=== PATIENT | female | born 1940 | race African-American/Black ===

== ENCOUNTER 2019-10-11 06:23 | Day surgery (SDC) | payer MEDICARE, OTHER ==
[~2019-10-11] VITALS: Ht 160 cm; Wt 49.5 kg
[2019-10-11] MEDS ORDERED: ALBUTEROL0.83 MG/ML IH (06:46)
[2019-10-11] MEDS ORDERED: PROAIR HFA0.09 MG/AC IH (06:47)
[2019-10-11] MEDS ORDERED: PREDNISONE 5MG5 MG PO (06:47)
[2019-10-11] MEDS ORDERED: PHENERGAN W/CO120 M1 PO (06:48)
[2019-10-11] MEDS ORDERED: TESSALON P100 MG/CAP PO (06:49)
[2019-10-11 07:02] VITALS: BP 154/60; PULSE 69; TEMP 97.7
[2019-10-11 09:02] VITALS: BP 130/78; PULSE 105; TEMP 98.9
--- NOTE | 2019-10-11 09:02 | NUR ---
The patient arrived back to [facility] from the endoscopy suite. The patient is lying down on her right side and appears to be resting comfortably at this time. The patient's post procedure vital signs were started at this time. The patient's is at her bedside at this time. Call light is within reach. Will continue to monitor the patient.
[2019-10-11 09:17] VITALS: BP 173/83; PULSE 113
--- NOTE | 2019-10-11 09:17 | NUR ---
The patient was given the dose of phenergan with codeine as ordered. The patient appears more alert and her cough has increased again at this time. The patient denies wanting anything to eat or drink at this time. The patient's remains at her bedside. Will continue to monitor the patient.
[2019-10-11 09:32] VITALS: BP 152/75; PULSE 112
--- NOTE | 2019-10-11 09:35 | NUR ---
The patient is sitting up on the side her bed and appears to be resting comfortably at this time. The patient voices a desire to be discharged home.
--- NOTE | 2019-10-11 09:45 | NUR ---
Discharge instrucitons were reviewed with the patient and her at this time. They both verbalized understanding and have no questions for the nurse at this time. The patient's IV to her left forearm was removed and a pressure dressing was applied. The nurse instructed the patient to get dressed and notify the staff when she is ready to be escorted out.
--- NOTE | 2019-10-11 10:00 | NUR ---
The patient was escorted out via wheelchair to a private vehicle by HEMA Matias. The patient's belongings and discharge paperwork were sent with her. The patient's is present to drive her home.
== END 2019-10-11 10:00 | disposition home or self-care (01) ==
LOC: SDCO 06:23
DX: C34.90 Malignant neoplasm of unspecified part of unspecified bronchus or lung (principal); R04.2 Hemoptysis; C79.31 Secondary malignant neoplasm of brain; Z90.710 Acquired absence of both cervix and uterus; F17.210 Nicotine dependence, cigarettes, uncomplicated
CPT/HCPCS: J2270; J2704; J7030

== ENCOUNTER 2019-10-14 12:31 | Emergency (ER) | payer MEDICARE, OTHER ==
[~2019-10-14] VITALS: Ht 160 cm; Wt 47.7 kg
[~2019-10-14 12:31] MED LIST: ALBUTEROL0.83 MG/ML IH; PHENERGAN W/CO120 M1 PO; PREDNISONE 5MG5 MG PO; PROAIR HFA0.09 MG/AC IH; TESSALON P100 MG/CAP PO
[2019-10-14 12:39] VITALS: TEMP 98.4
[2019-10-14 13:48] LABS: BASO % 0.3 % (0.0-2.0); EOS % 0.3 % (0-4.0); GRAN # 9.2 (1.4-6.5); GRAN % 79.6 % (42.2-75.2); LYMPH # 1.5 (1.2-3.4); LYMPH % 12.6 % (20.0-51.0); MEAN CELL VOLUME 82 fl (80.0-100.0); MEAN CORPUSCULAR HGB CONC 31 g/dl (33.0-37.0); MEAN PLATELET VOLUME 9.2 fl (7.4-10.4); MONO # 0.8 (0.1-0.6); MONO % 6.7 % (1.7-9.3); PLATELET COUNT 198 K/mm3 (130-400); RED BLOOD COUNT 3.68 M/mm3 (4.10-5.30); REDCELL DISTRIBUTION WIDTH-CV 19.3 % (11.5-14.5)
[2019-10-14 13:50] LABS: HEMATOCRIT 30.2 % (37.0-47.0); HEMOGLOBIN 9.4 g/dl (12.5-16.0); MEAN CORPUSCULAR HEMOGLOBIN 26 pg (27.0-31.0)
[2019-10-14 14:05] LABS: ALBUMIN 3.8 gm/dL (3.5-5.0); BILIRUBIN,TOTAL 0.8 mg/dL (0.0-1.0); CALCIUM 9.1 mg/dL (8.4-10.2); CREATININE, serum 0.6 (0.52-1.25); POTASSIUM 3.5 mmol/L (3.4-5.0); TOTAL PROTEIN 6.4 gm/dL (6.4-8.2)
[2019-10-14 19:30] VITALS: BP 173/108; PULSE 126
== END 2019-10-14 19:45 | disposition short-term general hospital (02) ==
LOC: COL.ER 12:31
PROVIDERS: Physician Assistant
DX: C34.90 Malignant neoplasm of unspecified part of unspecified bronchus or lung (principal); I31.3 Pericardial effusion (noninflammatory); Z90.710 Acquired absence of both cervix and uterus; Z90.89 Acquired absence of other organs; Z87.891 Personal history of nicotine dependence
CPT/HCPCS: J1100; J7030; Q9967

== ENCOUNTER → 2019-11-06 | Outpatient (CLI) | payer MEDICARE, OTHER ==
[2019-11-06 14:37] LABS: BASO % 0.4 % (0.0-2.0); EOS # 0.1 (0.0-0.7); EOS % 1.9 % (0-4.0); GRAN # 6.5 (1.4-6.5); GRAN % 86.6 % (42.2-75.2); LYMPH # 0.6 (1.2-3.4); LYMPH % 7.3 % (20.0-51.0); MEAN CELL VOLUME 81 fl (80.0-100.0); MEAN CORPUSCULAR HEMOGLOBIN 26 pg (27.0-31.0); MEAN CORPUSCULAR HGB CONC 32 g/dl (33.0-37.0); MEAN PLATELET VOLUME 9.1 fl (7.4-10.4); MONO # 0.3 (0.1-0.6); MONO % 3.3 % (1.7-9.3); PLATELET COUNT 324 K/mm3 (130-400); RED BLOOD COUNT 3.86 M/mm3 (4.10-5.30); REDCELL DISTRIBUTION WIDTH-CV 18.1 % (11.5-14.5)
[2019-11-06 14:40] LABS: HEMATOCRIT 31.3 % (37.0-47.0)
[2019-11-06 14:45] LABS: INR 1.1 (0.8-3.0); PROTHROMBIN TIME 13.1 SECONDS (9.7-12.8)
== END ==
LOC: COL.LAB 14:01
DX: Z01.812 Encounter for preprocedural laboratory examination (principal); C34.90 Malignant neoplasm of unspecified part of unspecified bronchus or lung; D49.9 Neoplasm of unspecified behavior of unspecified site

== ENCOUNTER → 2019-11-21 | Outpatient (CLI) | payer MEDICARE, OTHER | LOC: COL.VAS 08:35 | DX: J44.9 Chronic obstructive pulmonary disease, unspecified (principal); I51.7 Cardiomegaly; I36.1 Nonrheumatic tricuspid (valve) insufficiency; J90 Pleural effusion, not elsewhere classified; Z85.118 Personal history of other malignant neoplasm of bronchus and lung ==

== ENCOUNTER 2019-12-15 08:53 | Emergency (ER) | payer MEDICARE, OTHER ==
[~2019-12-15] VITALS: Ht 154.9 cm; Wt 42.0 kg
[2019-12-15 09:03] VITALS: TEMP 98.5
[2019-12-15 10:33] LABS: BASO % 0.4 % (0.0-2.0); EOS % 0.6 % (0-4.0); GRAN # 4.2 (1.4-6.5); LYMPH # 0.2 (1.2-3.4); LYMPH % 3.2 % (20.0-51.0); MEAN CELL VOLUME 84 fl (80.0-100.0); MEAN CORPUSCULAR HGB CONC 31 g/dl (33.0-37.0); MEAN PLATELET VOLUME 9.4 fl (7.4-10.4); MONO # 0.6 (0.1-0.6); PLATELET COUNT 201 K/mm3 (130-400); RED BLOOD COUNT 3.75 M/mm3 (4.10-5.30); REDCELL DISTRIBUTION WIDTH-CV 21.5 % (11.5-14.5)
[2019-12-15 10:45] LABS: INR 1.3 (0.8-3.0); PROTHROMBIN TIME 15.5 SECONDS (9.7-12.8)
[2019-12-15 10:48] LABS: ALBUMIN 3.8 gm/dL (3.5-5.0); BILIRUBIN,TOTAL 0.5 mg/dL (0.0-1.0); CALCIUM 9.4 mg/dL (8.4-10.2); CREATININE, serum 0.5 (0.52-1.25); POTASSIUM 3.5 mmol/L (3.4-5.0)
[2019-12-15 11:02] LABS: HEMATOCRIT 31.3 % (37.0-47.0); HEMOGLOBIN 9.8 g/dl (12.5-16.0); MEAN CORPUSCULAR HEMOGLOBIN 26 pg (27.0-31.0)
[2019-12-15 11:24] LABS: TROPONIN-I 0.021 ng/mL (0.000-0.035)
[2019-12-15 15:05] VITALS: BP 101/83; PULSE 97
== END 2019-12-15 15:05 | disposition home or self-care (01) ==
LOC: COL.ER 08:53
PROVIDERS: Emergency Medicine
DX: J90 Pleural effusion, not elsewhere classified (principal); J44.9 Chronic obstructive pulmonary disease, unspecified
CPT/HCPCS: J7030; Q9967

== ENCOUNTER 2019-12-26 11:57 | Emergency (ER) | payer MEDICARE, OTHER ==
[~2019-12-26] VITALS: Ht 154.9 cm; Wt 41.8 kg
[2019-12-26 12:04] VITALS: TEMP 98
[2019-12-26 13:28] LABS: BASO % 0.3 % (0.0-2.0); EOS # 0.1 (0.0-0.7); EOS % 0.9 % (0-4.0); GRAN # 5.5 (1.4-6.5); GRAN % 81.7 % (42.2-75.2); LYMPH # 0.2 (1.2-3.4); LYMPH % 2.9 % (20.0-51.0); MEAN CELL VOLUME 82 fl (80.0-100.0); MEAN CORPUSCULAR HGB CONC 32 g/dl (33.0-37.0); MEAN PLATELET VOLUME 9.2 fl (7.4-10.4); MONO # 0.9 (0.1-0.6); MONO % 13.6 % (1.7-9.3); PLATELET COUNT 307 K/mm3 (130-400); RED BLOOD COUNT 3.47 M/mm3 (4.10-5.30); REDCELL DISTRIBUTION WIDTH-CV 21.7 % (11.5-14.5)
[2019-12-26 13:30] LABS: HEMATOCRIT 28.4 % (37.0-47.0); HEMOGLOBIN 9.1 g/dl (12.5-16.0); MEAN CORPUSCULAR HEMOGLOBIN 26 pg (27.0-31.0)
[2019-12-26 13:32] LABS: INR 1.4 (0.8-3.0)
[2019-12-26 13:40] LABS: ALBUMIN 3.5 gm/dL (3.5-5.0); BILIRUBIN,TOTAL 0.3 mg/dL (0.0-1.0); CALCIUM 9.3 mg/dL (8.4-10.2); CREATININE, serum 0.37 (0.52-1.25); POTASSIUM 3.6 mmol/L (3.4-5.0); TOTAL PROTEIN 6.7 gm/dL (6.4-8.2)
[2019-12-26 16:15] VITALS: BP 106/66; PULSE 86
== END 2019-12-26 16:15 | disposition home or self-care (01) ==
LOC: COL.ER 11:57
PROVIDERS: Family Medicine
DX: J90 Pleural effusion, not elsewhere classified (principal); C34.91 Malignant neoplasm of unspecified part of right bronchus or lung; Z79.52 Long term (current) use of systemic steroids

== ENCOUNTER 2020-01-04 06:42 | Day surgery (SDC) | payer MEDICARE, OTHER ==
[~2020-01-04] VITALS: Ht 160 cm; Wt 47.2 kg
[2020-01-04 07:38] VITALS: BP 98/78; PULSE 84; TEMP 98.3
[2020-01-04 08:45] VITALS: BP 150/80; PULSE 99
--- NOTE | 2020-01-04 08:45 | NUR ---
Patient returns to room 7 per cart from Endoscopy and is awake and alert. Continues to have non productive cough. Given juice to drink. Spouse in room. No procedure was needed. IV fluids continues to infuse.
--- NOTE | 2020-01-04 09:00 | NUR ---
IV discontinued and tolerated juice. Room air sats 96%. Assisted patient with dressing. Follow up appointment was made and provided to patient.
[2020-01-04 09:03] VITALS: BP 146/87; PULSE 93
--- NOTE | 2020-01-04 09:05 | NUR ---
Patient dismissed to home driven by spouse and taken to the front door per wheelchair and assisted into vehicle by this RN and instructions in hand.
== END 2020-01-04 09:05 | disposition home or self-care (01) ==
LOC: SDCO 06:42 → EDSTATUS 08:30 → SDCO 09:05
DX: J90 Pleural effusion, not elsewhere classified (principal); Z85.118 Personal history of other malignant neoplasm of bronchus and lung; J44.9 Chronic obstructive pulmonary disease, unspecified; I27.20 Pulmonary hypertension, unspecified; F17.210 Nicotine dependence, cigarettes, uncomplicated; Z79.52 Long term (current) use of systemic steroids
CPT/HCPCS: J2704; J7030